=== PATIENT | male | born 1960 | race Caucasian/White ===

== ENCOUNTER 2017-06-10 03:14 | Emergency (ER) | payer BC ==
[2017-06-10] MEDS ORDERED: Ketorolac 30 MG/ML SDV IVPUSH ONE (03:34)
[2017-06-10] MEDS ORDERED: Ondansetron 4 MG/2 ML SDV IVPUSH ONE (03:34)
[2017-06-10] MEDS ORDERED: Sodium Chloride 0.9% 1,000 ML IV ONE (03:34)
--- NOTE | 2017-06-10 03:41 | EDM.PDOC ---
[id number] 4d BACK PAIN Time Seen by Provider: 06/10/17 03:26 Source of Information: Reports: Patient History Limitations: Reports: No Limitations - History of Present Illness INITIAL COMMENTS - FREE TEXT/NARRATIVE: 57 y/o M with flank pain x 24 hrs. Sudden onset, R flank, sharp, nonradiating, waxes and wanes, occasionally severe. Taking advil, no relief. No injury. No hx similar sx previously. No dysuria or hematuria. No fever. No abd pain or vomiting. No cough/CP/SOB. Right Flank Pain Score (Numeric/FACES): 8 - Related Data Allergies Allergy/AdvReac Type Severity Reaction Status Date / Time codeine Allergy Nausea Verified 06/10/17 03:24 morphine Allergy Anaphylactic Verified 06/10/17 03:24 Shock Home Meds: Home Meds Cyclobenzaprine [Flexeril] 10 mg PO BID PRN #20 tablet 06/10/17 [Rx] Hydrocodone/Acetaminophen [Hydrocodon-Acetaminophen 5-325] 1 each PO QID PRN # 12 tablet 06/10/17 [Rx] Ibuprofen 800 mg PO TID PRN #50 tablet 06/10/17 [Rx] Lisinopril 10 mg PO DAILY 06/10/17 [History] Past Medical History Cardiovascular History: Reports: Hypertension - Past Surgical History GI Surgical History: Reports: Appendectomy Musculoskeletal Surgical History: Reports: Other (See Below) Other Musculoskeletal Surgeries/Procedures:: knee surgery Social & Family History - Tobacco Use Smoking Status *Q: Current Every Day Smoker Years of Tobacco use: 20 Packs/Tins Daily: 1 - Recreational Drug Use Recreational Drug Use: No ED ROS GENERAL - Review of Systems Review Of Systems: See Below Constitutional: Reports: No Symptoms Respiratory: Denies: Cough Cardiovascular: Denies: Chest Pain GI/Abdominal: Denies: Abdominal Pain : Reports: Flank Pain. Denies: Dysuria Musculoskeletal: Reports: Back Pain Skin: Reports: No Symptoms ED EXAM, RENAL/ - Physical Exam Exam: See Below Exam Limited By: No Limitations General Appearance: Alert, WD/WN, No Apparent Distress Eye Exam: Bilateral Eye: Normal Inspection Ears: Normal External Exam Nose: Normal Inspection Throat/Mouth: Normal Inspection, Normal Voice Head: Atraumatic, Normocephalic Neck: Normal Inspection, Supple, Non-Tender, Full Range of Motion Respiratory/Chest: No Respiratory Distress, Lungs Clear, Normal Breath Sounds, No Accessory Muscle Use, Chest Non-Tender Cardiovascular: Normal Peripheral Pulses, Regular Rate, Rhythm, No Murmur GI/Abdominal: Soft, Non-Tender, No Distention Back Exam: Normal Inspection, CVA Tenderness (R). No: CVA Tenderness (L), Vertebral Tenderness Extremities: Normal Inspection Neurological: Alert, Oriented, Normal Cognition, No Motor/Sensory Deficits Course - Vital Signs Last Recorded V/S: Last Vital Signs Temp 36.3 C 06/10/17 03:22 Pulse 69 06/10/17 05:07 Resp 16 06/10/17 05:07 BP 136/76 06/10/17 05:07 Pulse Ox 96 06/10/17 05:07 - Orders/Labs/Meds Orders: Active Orders 24 hr Category Date Time Status Abdomen Pelvis wo Cont [CT] Stat Exams 06/10/17 03:33 Taken Labs: Laboratory Tests 06/10/17 06/10/17 06/10/17 Range/Units 03:25 03:50 03:50 WBC 14.36 H (4.23-9.07) K/mm3 RBC 4.96 (4.63-6.08) M/mm3 Hgb 15.4 (13.7-17.5) gm/L Hct 45.0 (40.1-51.0) % MCV 90.7 (79.0-92.2) fl MCH 31.0 (25.7-32.2) pg MCHC 34.2 (32.2-35.5) g/dl RDW Std Deviation 43.4 (35.1-43.9) fL Plt Count 303 (163-337) K/mm3 MPV 11.3 (9.4-12.3) fl Neut % (Auto) 57.7 (34.0-67.9) % Lymph % (Auto) 17.1 L (21.8-53.1) % [place] % (Auto) 19.2 H (5.3-12.2) % Eos % (Auto) 5.4 (0.8-7.0) Baso % (Auto) 0.5 (0.1-1.2) % Neut # (Auto) 8.29 H (1.78-5.38) K/mm3 Lymph # (Auto) 2.45 (1.32-3.57) K/mm3 [place] # (Auto) 2.75 H (0.30-0.82) K/mm3 Eos # (Auto) 0.78 H (0.04-0.54) K/mm3 Baso # (Auto) 0.07 (0.01-0.08) K/mm3 Manual Slide Review Normal smear Sodium 139 (136-145) mEq/L Potassium 4.8 (3.5-5.1) mEq/L Chloride 103 (98-107) mEq/L Carbon Dioxide 26 (21-32) mEq/L Anion Gap 14.8 (5-15) BUN 11 (7-18) mg/dL Creatinine 0.8 (0.7-1.3) mg/dL Est Cr Clr Drug Dosing 89.72 mL/min Estimated GFR (MDRD) > 60 (>60) mL/min BUN/Creatinine Ratio 13.8 L (14-18) Glucose 95 (74-106) mg/dL Calcium 9.2 (8.5-10.1) mg/dL Total Bilirubin 0.6 (0.2-1.0) mg/dL AST 19 (15-37) U/L ALT 27 (16-63) U/L Alkaline Phosphatase 77 (46-116) U/L Total Protein 7.6 (6.4-8.2) g/dl Albumin 4.2 (3.4-5.0) g/dl Globulin 3.4 gm/dL Albumin/Globulin Ratio 1.2 (1-2) Urine Color Yellow (Yellow) Urine Appearance Clear (Clear) Urine pH 6.5 (5.0-8.0) Ur Specific [place] 1.015 (1.005-1.030) Urine Protein Negative (Negative) Urine Glucose (UA) Negative (Negative) Urine Ketones Negative (Negative) Urine Occult Blood Negative (Negative) Urine Nitrite Negative (Negative) Urine Bilirubin Negative (Negative) Urine Urobilinogen 0.2 (0.2-1.0) Ur Leukocyte Esterase Negative (Negative) Urine RBC 0-5 (0-5) /hpf Urine WBC 0-5 (0-5) /hpf Ur Epithelial Cells 0-5 (0-5) /hpf Urine Bacteria Rare (FEW) /hpf Urine Mucus Not seen (FEW) /hpf Meds: Medications Discontinued Medications Generic Name Dose Route Start Last Admin Trade Name Freq PRN Reason Stop Dose Admin Cyclobenzaprine HCl 10 mg 06/10/17 05:01 06/10/17 05:06 Flexeril PO 06/10/17 05:02 10 mg ONETIME ONE Administration Sodium Chloride 1,000 mls @ 1,000 mls/hr 06/10/17 03:34 06/10/17 03:52 Normal Saline IV 06/10/17 04:33 1,000 mls/hr ONETIME ONE Administration Ketorolac Tromethamine 30 mg 06/10/17 03:34 06/10/17 03:52 Toradol IVPUSH 06/10/17 03:35 30 mg ONETIME ONE Administration Ondansetron HCl 4 mg 06/10/17 03:34 06/10/17 03:52 Zofran IVPUSH 06/10/17 03:35 4 mg ONETIME ONE Administration - Re-Assessments/Exams Free Text/Narrative Re-Assessment/Exam: 06/10/17 06:53 CT a/p negative. WBC mildly elevated but no left shifts, labs otherwise unremarkable. No clear explanation of patients back/paraspinal pain. Suspect musculoskeletal. Exam benign. No respiratory/chest symptoms. Pain is somewhat positional. Will treat for musculoskeletal pain. Departure - Departure Time of Disposition: 05:01 Disposition: Home, Self-Care 01 Clinical Impression: Back pain Qualifiers: Back pain location: thoracic back pain Chronicity: acute Back pain laterality: right Qualified Code(s): M54.6 - Pain in thoracic spine - Discharge Information Prescriptions: Cyclobenzaprine [Flexeril] 10 mg PO BID PRN #20 tablet PRN Reason: Muscle Spasm Hydrocodone/Acetaminophen [Hydrocodon-Acetaminophen 5-325] 1 each PO QID PRN # 12 tablet PRN Reason: Pain Ibuprofen 800 mg PO TID PRN #50 tablet PRN Reason: Pain Instructions: Back Pain, Adult Referrals: PCP,Not In Area [Primary Care Provider] - Forms: ED Department Discharge Additional Instructions: 1. Take ibuprofen as prescribed for pain 2. Take cyclobenzaprine as prescribed for muscle relaxation 3. Take hydrocodone as needed for severe pain. No driving or operating heavy machinery while taking this medication 4. Follow up with your primary doctor as soon as possible for further care 5. Return to the closest emergency department if you have fever, difficulty breathing, worsening pain, or other concerning symptoms - My Orders Last 24 Hours: My Active Orders 06/10/17 03:33 Abdomen Pelvis wo Cont [CT] Stat - Assessment/Plan Last 24 Hours: My Active Orders 06/10/17 03:33 Abdomen Pelvis wo Cont [CT] Stat
[2017-06-10] MEDS ORDERED: Cyclobenzaprine 10 MG Tab PO ONE (05:01)
[2017-06-10 05:08] VITALS: BP 136/76
--- NOTE | 2017-06-10 09:56 | CT ---
CT abdomen and pelvis Technique: Multiple axial sections were obtained from above the dome of the diaphragm inferiorly through the pubic symphysis. Intravenous and oral contrast was not utilized. Study has been performed as a ureteral stone protocol. Findings: Small nonobstructing calculus noted within the left kidney measuring approximately 3 mm. Low-density lesion noted within the lower left kidney most likely due to minimal cyst measuring roughly 1.1 cm. No ureteral dilatation or ureteral calculi are seen. No bladder calculi are identified. Visualized lung bases show nothing acute. Noncontrast appearance of the liver and spleen appear within normal limits. Surgical clips noted from prior cholecystectomy. Adrenal glands show no nodule. Pancreas has an unremarkable noncontrast CT appearance. Atherosclerotic change noted within the aorta and iliac vessels without aneurysm. No retroperitoneal adenopathy or mesenteric abnormalities are seen. Appendix is seen which is normal. No pelvic mass or adenopathy is seen. No free fluid or inflammatory change is seen. Bone window settings were reviewed which show mild degenerative change primarily within the lower thoracic spine. Impression: 1. Small nonobstructing stone within left kidney with small left-sided renal cyst. 2. No ureteral dilatation or ureteral stone is seen. 3. Other incidental findings as described above. Diagnostic code #2 I agree with preliminary report issued by [facility] ([facility] preliminary report dictated on 06/10/17, 5:49 AM Central Time)
== END 2017-06-10 05:10 | disposition home or self-care (01) ==
LOC: JD.ED 03:14
DX: M54.6 Pain in thoracic spine (principal); F17.210 Nicotine dependence, cigarettes, uncomplicated; I10 Essential (primary) hypertension; Z79.899 Other long term (current) drug therapy; Z90.49 Acquired absence of other specified parts of digestive tract; Z88.5 Allergy status to narcotic agent
CPT/HCPCS: 36415; 74176; 80053; 81001; 85025; 96361; 96374; 96375; 99284; A9270; J1885; J2405; J7040